=== PATIENT | female | born 1945 | race Caucasian/White ===

== ENCOUNTER 2018-02-01 09:32 | Outpatient (CLI) | payer MEDICARE, OTHER ==
[2018-02-01 10:09] LABS: BASOPHILS # (AUTO) 0.1 10^3/uL (0.0-0.1); EOSINOPHILS # (AUTO) 0.2 10^3/uL (0.0-0.7); EOSINOPHILS % (AUTO) 2.9 %; LYMPHOCYTES % (AUTO) 29.1 %; MEAN CORPUSCULAR HEMOGLOBIN 30.4 pg (27.0-31.0); MEAN CORPUSCULAR HGB CONC 33.4 g/dL (32.0-36.0); MEAN PLATELET VOLUME 7.6 fL (7.9-10.8); MONOCYTES # (AUTO) 0.5 10^3/uL (0.0-1.0); MONOCYTES % (AUTO) 7.6 %; NEUTROPHILS # (AUTO) 4.1 10^3/uL (1.5-6.6); NEUTROPHILS % (AUTO) 59.4 %; PLT - PLATELET COUNT 263 10^3/uL (130-450); RED BLOOD COUNT 4.93 10^6/uL (4.20-5.40); RED CELL DISTRIBUTION WIDTH 13.3 % (12.0-15.0); WHITE BLOOD COUNT 6.8 x10^3/uL (4.8-10.8)
[2018-02-01 10:46] LABS: ALBUMIN 4.2 g/dL (3.2-5.5); ALBUMIN/GLOBULIN RATIO 1.2 (1.0-2.2); ALKALINE PHOSPHATASE 73 IU/L (42-121); ALT ALANINE AMINOTRANSFERASE 19 IU/L (10-60); AST ASPARTATE AMINOTRANSFERASE 24 IU/L (10-42); BILIRUBIN,TOTAL 0.9 mg/dL (0.2-1.0); BUN - BLOOD UREA NITROGEN 21 mg/dL (6-20); CALCIUM 9.4 mg/dL (8.5-10.3); CARBON DIOXIDE - CO2 26 mmol/L (21-32); CHLORIDE 103 mmol/L (101-111); CHOL/HDL RATIO 3.9 (<4.4); CHOLESTEROL 168 mg/dL; CK- CREATINE KINASE 89 IU/L (22-269); CREATININE 0.7 mg/dL (0.4-1.0); GFR - MDRD 83 (>89); GLUCOSE 101 mg/dL (70-100); HDL CHOLESTEROL 43 mg/dL; LDL CHOLESTEROL,CALCULATED 92 mg/dL; LDL/HDL RATIO 2.1 (<4.4); SODIUM 137 mmol/L (135-145); TOTAL PROTEIN 7.7 g/dL (6.7-8.2); VLDL CHOLESTEROL 33 mg/dL
[2018-02-01 10:58] LABS: THYROID STIMULATING HORMONE 1.57 uIU/mL (0.34-5.60)
[2018-02-01 11:16] LABS: BILIRUBIN,URINE NEGATIVE (NEGATIVE); GLUCOSE, URINE (UA) NEGATIVE (NEGATIVE); KETONES,URINE (UA) NEGATIVE (NEGATIVE); LEUKOCYTE ESTERASE, URINE SMALL (NEGATIVE); NITRITE,URINE NEGATIVE (NEGATIVE); OCCULT BLOOD,URINE NEGATIVE (NEGATIVE); PROTEIN,URINE NEGATIVE (NEGATIVE); UROBILINOGEN,URINE 0.2 (NORMAL) E.U./dL (NORMAL)
[2018-02-01 11:51] LABS: CLARITY,URINE CLEAR (CLEAR)
[2018-02-01 12:10] LABS: BACTERIA,URINE Few /HPF (None Seen); RBC,URINE 0-5 /HPF (0-5); SQUAMOUS EPITHELIAL CELL,UR MOD Squamous (<= Few)
[2018-02-02 13:36] LABS: HEPATITIS C ANTIBODY NON-REACTIVE (NON-REACTIVE)
== END 2018-02-01 09:33 | disposition home or self-care (01) ==
LOC: LAB 09:32
PROVIDERS: ATTEND Internal Medicine
DX: Z12.11 Encounter for screening for malignant neoplasm of colon (principal); Z79.899 Other long term (current) drug therapy; Z12.12 Encounter for screening for malignant neoplasm of rectum; I10 Essential (primary) hypertension; R20.2 Paresthesia of skin; Z86.010 Personal history of colon polyps; E78.5 Hyperlipidemia, unspecified; C50.919 Malignant neoplasm of unspecified site of unspecified female breast; C44.91 Basal cell carcinoma of skin, unspecified; Z11.59 Encounter for screening for other viral diseases
CPT/HCPCS: 36415; 80053; 80061; 81001; 81003; 82550; 82607; 83721; 84443; 85025; 86803; 87086

== ENCOUNTER → 2018-02-15 | Outpatient (CLI) | payer MEDICARE, OTHER | LOC: LAB.R 08:00 | PROVIDERS: ATTEND Internal Medicine | DX: Z12.11 Encounter for screening for malignant neoplasm of colon (principal); Z12.12 Encounter for screening for malignant neoplasm of rectum; I10 Essential (primary) hypertension; R20.2 Paresthesia of skin; Z86.010 Personal history of colon polyps; E78.5 Hyperlipidemia, unspecified; C50.919 Malignant neoplasm of unspecified site of unspecified female breast; C44.91 Basal cell carcinoma of skin, unspecified; Z11.59 Encounter for screening for other viral diseases; Z79.899 Other long term (current) drug therapy | CPT/HCPCS: 82274 ==

== ENCOUNTER 2018-11-07 13:48 | Outpatient (CLI) | payer MEDICARE, OTHER ==
[2018-11-07 14:19] LABS: BASOPHILS # (AUTO) 0.1 10^3/uL (0.0-0.1); BASOPHILS % (AUTO) 0.7 %; EOSINOPHILS # (AUTO) 0.1 10^3/uL (0.0-0.7); EOSINOPHILS % (AUTO) 1.6 %; HGB - HEMOGLOBIN 15.1 g/dL (12.0-16.0); LYMPHOCYTES % (AUTO) 24.3 %; MEAN CORPUSCULAR HEMOGLOBIN 30.5 pg (27.0-31.0); MEAN CORPUSCULAR HGB CONC 34.3 g/dL (32.0-36.0); MEAN PLATELET VOLUME 7.4 fL (7.9-10.8); MONOCYTES # (AUTO) 0.6 10^3/uL (0.0-1.0); MONOCYTES % (AUTO) 7.2 %; NEUTROPHILS # (AUTO) 5.3 10^3/uL (1.5-6.6); NEUTROPHILS % (AUTO) 66.2 %; PLT - PLATELET COUNT 291 10^3/uL (130-450); RED BLOOD COUNT 4.93 10^6/uL (4.20-5.40); RED CELL DISTRIBUTION WIDTH 13.7 % (12.0-15.0)
[2018-11-07 14:36] LABS: CALCIUM 9.4 mg/dL (8.5-10.3); CREATININE 0.6 mg/dL (0.4-1.0)
== END 2018-11-07 13:49 | disposition home or self-care (01) ==
LOC: LAB 13:48
PROVIDERS: ATTEND Internal Medicine
DX: Z01.812 Encounter for preprocedural laboratory examination (principal); N81.10 Cystocele, unspecified; E78.5 Hyperlipidemia, unspecified; I10 Essential (primary) hypertension; C50.919 Malignant neoplasm of unspecified site of unspecified female breast; Z79.899 Other long term (current) drug therapy
CPT/HCPCS: 36415; 80048; 85025; 87640

== ENCOUNTER 2019-03-01 09:46 | Outpatient (CLI) | payer MEDICARE, OTHER ==
[2019-03-01 10:27] LABS: BILIRUBIN,URINE NEGATIVE (NEGATIVE); GLUCOSE, URINE (UA) NEGATIVE (NEGATIVE); KETONES,URINE (UA) NEGATIVE (NEGATIVE); LEUKOCYTE ESTERASE, URINE SMALL (NEGATIVE); NITRITE,URINE NEGATIVE (NEGATIVE); OCCULT BLOOD,URINE NEGATIVE (NEGATIVE); PH,URINE 5.5 PH (5.0-7.5); PROTEIN,URINE NEGATIVE (NEGATIVE); UROBILINOGEN,URINE 0.2 (NORMAL) E.U./dL (NORMAL)
[2019-03-01 10:28] LABS: CLARITY,URINE HAZY (CLEAR)
[2019-03-01 10:34] LABS: ALBUMIN 4.3 g/dL (3.2-5.5); ALBUMIN/GLOBULIN RATIO 1.2 (1.0-2.2); ALKALINE PHOSPHATASE 71 IU/L (42-121); ALT ALANINE AMINOTRANSFERASE 19 IU/L (10-60); AST ASPARTATE AMINOTRANSFERASE 21 IU/L (10-42); BACTERIA,URINE Few /HPF (None Seen); BILIRUBIN,TOTAL 0.9 mg/dL (0.2-1.0); BUN - BLOOD UREA NITROGEN 16 mg/dL (6-20); CALCIUM 9.4 mg/dL (8.5-10.3); CARBON DIOXIDE - CO2 27 mmol/L (21-32); CHLORIDE 100 mmol/L (101-111); CHOL/HDL RATIO 4.1 (<4.4); CHOLESTEROL 165 mg/dL; CK- CREATINE KINASE 68 IU/L (22-269); CREATININE 0.7 mg/dL (0.4-1.0); GFR - MDRD 82 (>89); GLUCOSE 112 mg/dL (70-100); HDL CHOLESTEROL 40 mg/dL; LDL CHOLESTEROL,CALCULATED 83 mg/dL; LDL/HDL RATIO 2.1 (<4.4); RBC,URINE None Seen /HPF (0-5); SODIUM 140 mmol/L (135-145); SQUAMOUS EPITHELIAL CELL,UR MOD Squamous (<= Few); VLDL CHOLESTEROL 42 mg/dL
[2019-03-01 10:47] LABS: HEMOGLOBIN A1C 0.61 g/dL; HEMOGLOBIN A1C % 5.9 % (4.6-6.2)
== END 2019-03-01 09:47 | disposition home or self-care (01) ==
LOC: LAB 09:46
PROVIDERS: ATTEND Internal Medicine
DX: I10 Essential (primary) hypertension (principal); Z79.899 Other long term (current) drug therapy; E78.5 Hyperlipidemia, unspecified; E87.6 Hypokalemia; C44.91 Basal cell carcinoma of skin, unspecified; R73.9 Hyperglycemia, unspecified
CPT/HCPCS: 36415; 80053; 80061; 81001; 81003; 82550; 83036; 83721; 84443; 87086

== ENCOUNTER 2019-10-17 11:10 | Outpatient (CLI) | payer MEDICARE, OTHER ==
--- NOTE | 2019-10-25 08:31 | Mammography Report ---
Reason: SCREENING MAMMO Procedure Date: 10/17/2019 Accession Number: [id number] / [id number] Procedure: CHARLES - Screening Mammo w/Donal CPT Code: Final Report FULL RESULT: EXAM: Screening Mammo w/Donal DATE: 10/17/2019 11:55 AM CLINICAL HISTORY: Screening encounter. Personal history of right breast cancer status post chemoradiation and lumpectomy in 2002. TECHNIQUE: (B) - Bilateral CC and MLO views were obtained. COMPARISON: 07/19/2018 through 07/16/2015. PARENCHYMAL PATTERN: (F) - The breast(s) demonstrate(s) diffuse fatty replacement. FINDINGS: Postsurgical and posttreatment changes in the right breast is stable, typically benign. There are no suspicious masses, calcifications, or areas of distortion. IMPRESSION: Benign findings. BI-RADS category 2. RECOMMENDATION: (ANNUAL) - Recommend routine annual screening mammography. BI-RADS CATEGORY: (2) - Benign Findings. STANDARD QUALIFYING STATEMENTS: 1. This examination was not reviewed with the aid of Computer-Aided Detection (CAD). 2. A negative or benign imaging report should not preclude biopsy if clinically suspicious findings are present. 3. Dense breasts may obscure an underlying neoplasm. 4. This examination was reviewed with the aid of 3D breast imaging (tomosynthesis).
== END 2019-10-17 11:11 | disposition home or self-care (01) ==
LOC: DI 11:10
DX: Z12.31 Encounter for screening mammogram for malignant neoplasm of breast (principal); Z85.3 Personal history of malignant neoplasm of breast; Z92.3 Personal history of irradiation; Z92.21 Personal history of antineoplastic chemotherapy
CPT/HCPCS: 77063; 77067

== ENCOUNTER 2020-12-30 12:21 | Outpatient (CLI) | payer MEDICARE, OTHER ==
--- NOTE | 2020-12-31 12:10 | Mammography Report ---
BILATERAL DIGITAL SCREENING MAMMOGRAM 3D/2D: 12/30/2020 CLINICAL: Routine screening. Personal history of right breast cancer. Comparison is made to exams dated: 10/17/2019 mammogram - [facility] and 07/19/2018 mammogram - [facility]. The tissue of both breasts is predominantly fatty. There are benign post operative findings in the right breast. No significant masses, calcifications, or other findings are seen in either breast. There has been no significant interval change. IMPRESSION: BENIGN There is no mammographic evidence of malignancy. A 1 year screening mammogram is recommended. This exam was interpreted at Station ID: [id number]. NOTE: For mammograms, a report in lay terms will be sent to the patient. Approximately 15% of breast malignancies will not be visualized mammographically. In the management of a palpable breast mass, a negative mammogram must not discourage biopsy of a clinically suspicious lesion. Electronically Signed By: Jose Holly M.D. slc/penrad:12/30/2020 13:50:44 ACR BI-RADS Category 2: Benign Finding(s) 3342F PARENCHYMAL PATTERN: (F) - The breast(s) demonstrate(s) diffuse fatty replacement. BI-RADS CATEGORY: (2) - 2 RECOMMENDATION: (ANNUAL) - Recommend routine annual screening mammography. [id number] 1 year screening LATERALITY: (B)
== END 2020-12-30 12:22 | disposition home or self-care (01) ==
LOC: DI.N 12:21
DX: Z12.31 Encounter for screening mammogram for malignant neoplasm of breast (principal); Z85.3 Personal history of malignant neoplasm of breast

== ENCOUNTER 2021-05-20 08:13 | Outpatient (CLI) | payer MEDICARE, OTHER ==
[2021-05-20 08:39] LABS: BASOPHILS # (AUTO) 0.1 10^3/uL (0.0-0.1); BASOPHILS % (AUTO) 0.8 %; EOSINOPHILS # (AUTO) 0.2 10^3/uL (0.0-0.7); EOSINOPHILS % (AUTO) 2.7 %; HCT - HEMATOCRIT 44.8 % (37.0-47.0); HGB - HEMOGLOBIN 15.3 g/dL (12.0-16.0); LYMPHOCYTES # (AUTO) 2.3 10^3/uL (1.5-3.5); MEAN CORPUSCULAR HEMOGLOBIN 30.5 pg (27.0-31.0); MEAN CORPUSCULAR HGB CONC 34.2 g/dL (32.0-36.0); MEAN CORPUSCULAR VOLUME 89.4 fL (81.0-99.0); MEAN PLATELET VOLUME 9.1 fL (7.9-10.8); MONOCYTES # (AUTO) 0.6 10^3/uL (0.0-1.0); MONOCYTES % (AUTO) 7.8 %; NEUTROPHILS % (AUTO) 56.6 %; PLT - PLATELET COUNT 266 10^3/uL (130-450); RED BLOOD COUNT 5.01 10^6/uL (4.20-5.40); RED CELL DISTRIBUTION WIDTH 13.2 % (12.0-15.0); WHITE BLOOD COUNT 7.1 x10^3/uL (4.8-10.8)
[2021-05-20 08:59] LABS: ALBUMIN 4.4 g/dL (3.2-5.5); ALBUMIN/GLOBULIN RATIO 1.3 (1.0-2.2); ALKALINE PHOSPHATASE 72 IU/L (42-121); ALT ALANINE AMINOTRANSFERASE 18 IU/L (10-60); AST ASPARTATE AMINOTRANSFERASE 21 IU/L (10-42); BILIRUBIN,TOTAL 0.9 mg/dL (0.2-1.0); BUN - BLOOD UREA NITROGEN 18 mg/dL (6-20); CALCIUM 9.2 mg/dL (8.5-10.3); CARBON DIOXIDE - CO2 25 mmol/L (21-32); CHLORIDE 101 mmol/L (101-111); CHOL/HDL RATIO 3.8 (<4.4); CHOLESTEROL 171 mg/dL; CK- CREATINE KINASE 77 IU/L (22-269); CREATININE 0.6 mg/dL (0.4-1.0); GFR - MDRD 98 (>89); GLUCOSE 110 mg/dL (70-100); HDL CHOLESTEROL 45 mg/dL; LDL CHOLESTEROL,CALCULATED 81 mg/dL; LDL/HDL RATIO 1.8 (<4.4); POTASSIUM 3.7 mmol/L (3.5-5.0); SODIUM 137 mmol/L (135-145); TOTAL PROTEIN 7.7 g/dL (6.7-8.2); TRIGLYCERIDES 225 mg/dL; VLDL CHOLESTEROL 45 mg/dL
[2021-05-20 09:07] LABS: ESTIMATED AVERAGE GLUCOSE 114 mg/dL (70-100); HEMOGLOBIN A1c% 5.6 % (4.27-6.07)
== END 2021-05-20 08:14 | disposition home or self-care (01) ==
LOC: LAB 08:13
PROVIDERS: ATTEND Internal Medicine
DX: Z79.899 Other long term (current) drug therapy (principal); Z13.6 Encounter for screening for cardiovascular disorders; I10 Essential (primary) hypertension; C44.91 Basal cell carcinoma of skin, unspecified; C50.919 Malignant neoplasm of unspecified site of unspecified female breast; E87.6 Hypokalemia; R73.01 Impaired fasting glucose; E78.5 Hyperlipidemia, unspecified
CPT/HCPCS: 36415; 80053; 80061; 82550; 83036; 83721; 84443; 85025

== ENCOUNTER 2021-06-24 14:30 | Outpatient (CLI) | payer MEDICARE, OTHER ==
--- NOTE | 2021-06-26 02:21 | XRAY Report ---
PROCEDURE: Knee 4 View LT INDICATIONS: LEFT KNEE PAIN TECHNIQUE: 4 views of the left knee(s) were acquired. Images became available for interpretation on 06/25/2021. COMPARISON: None. FINDINGS: Bones: No fractures or dislocations. No suspicious bony lesions. There is moderate to severe bilat eral medial compartment narrowing, right greater than left. Mild periarticular osteophytes without er osions. Moderate left patellofemoral compartment narrowing is present. Soft tissues: No joint effusion. No suspicious soft tissue calcifications. IMPRESSION: Arthritic changes as above slightly more prominent on the right. Reviewed by: Debi Wahl MD on 06/26/2021 12:48 AM PDT Approved by: Debi Wahl MD on 06/26/2021 12:48 AM PDT Station ID: [id number]
== END 2021-06-24 23:59 | disposition home or self-care (01) ==
LOC: DI.N 14:30
PROVIDERS: ATTEND Orthopaedic Surgery
DX: M17.0 Bilateral primary osteoarthritis of knee (principal)

== ENCOUNTER 2022-01-21 11:30 | Emergency (ER) | payer MEDICARE, OTHER ==
[2022-01-21 12:21] LABS: BASOPHILS % (AUTO) 0.3 %; EOSINOPHILS % (AUTO) 0.3 %; HCT - HEMATOCRIT 43.3 % (37.0-47.0); HGB - HEMOGLOBIN 15.3 g/dL (12.0-16.0); LYMPHOCYTES # (AUTO) 1.5 10^3/uL (1.5-3.5); LYMPHOCYTES % (AUTO) 16.1 %; MEAN CORPUSCULAR HGB CONC 35.3 g/dL (32.0-36.0); MEAN CORPUSCULAR VOLUME 87.7 fL (81.0-99.0); MEAN PLATELET VOLUME 9.3 fL (7.9-10.8); MONOCYTES # (AUTO) 0.4 10^3/uL (0.0-1.0); MONOCYTES % (AUTO) 4.6 %; NEUTROPHILS # (AUTO) 7.3 10^3/uL (1.5-6.6); NEUTROPHILS % (AUTO) 78.5 %; PLT - PLATELET COUNT 260 10^3/uL (130-450); RED BLOOD COUNT 4.94 10^6/uL (4.20-5.40); RED CELL DISTRIBUTION WIDTH 13.1 % (12.0-15.0); WHITE BLOOD COUNT 9.3 x10^3/uL (4.8-10.8)
--- NOTE | 2022-01-21 12:34 | XRAY Report ---
PROCEDURE: Chest 1 View X-Ray INDICATIONS: Chest pain TECHNIQUE: One view of the chest was acquired. COMPARISON: None. FINDINGS: Surgical changes and devices: Right axillary surgical clips. Lungs and pleura: There is a small round approximately 9 mm opacity in the lateral aspect of the righ t lung base adjacent to an EKG lead. Increased interstitial markings in both lungs. Mediastinum: Mediastinal contours appear normal. Heart size is normal. Bones and chest wall: No suspicious bony lesions. Overlying soft tissues appear unremarkable. IMPRESSION: Mildly increased interstitial prominence likely reflecting pulmonary edema or atypical infectious pro cess. Small rounded airspace opacity in the right lung base measuring 9 mm, potentially infectious although small lung nodule cannot be excluded. CT chest without IV contrast recommended when clinically appro priate. Reviewed by: Santiago Damon MD on 01/21/2022 12:33 PM PDT Approved by: Santiago Damon MD on 01/21/2022 12:33 PM PDT Station ID: [id number]
[2022-01-21 12:50] LABS: ALBUMIN 4.2 g/dL (3.2-5.5); ALBUMIN/GLOBULIN RATIO 1.1 (1.0-2.2); BILIRUBIN,TOTAL 2.8 mg/dL (0.2-1.0); CALCIUM 9.6 mg/dL (8.5-10.3); CREATININE 0.6 mg/dL (0.4-1.0); POTASSIUM 3.8 mmol/L (3.5-5.0)
--- NOTE | 2022-01-21 12:59 | ED Physician Documentation ---
PD HPI ABD PAIN - Stated complaint Stated Complaint: CHEST PAIN/SOA - Chief complaint Chief Complaint: Cardiac - History obtained from History obtained from: Patient - History of Present Illness Timing - onset: Yesterday Timing - duration: Days (2) Timing - details: Gradual onset, Waxing and waning Pain level max: 7 Pain level now: 5 Quality: Aching, Pain Location: Epigastric Radiation: No: Chest, , Lower back, Left flank, Left shoulder, Right flank, Right shoulder, Upper back Improved by: Other (nothing) Worsened by: Eating Associated symptoms: Nausea, Chest pain (epigastric pain). No: Fever, Vomiting, Hematemesis, Diarrhea, Constipation, Melena, Hematochezia, Dysuria, Hematuria, Dizzy, Near syncope / syncope, Loss of appetite, Weight loss Similar symptoms before: Has not had sx before Recently seen: Not recently seen Review of Systems Ten Systems: 10 systems reviewed and negative Constitutional: denies: Fever, Chills Ears: denies: Ear pain Nose: denies: Rhinorrhea / runny nose, Congestion Cardiac: denies: Chest pain / pressure Respiratory: denies: Dyspnea, Cough GI: reports: Abdominal Pain (dull, aching, epigastric), Nausea. denies: Hematemesis, Bloody / black stool Skin: denies: Rash Neurologic: denies: Headache PD PAST MEDICAL HISTORY - Past Medical History Past Medical History: Yes Cardiovascular: Hypertension, High cholesterol Respiratory: None Neuro: None Endocrine/Autoimmune: None GI: None RECONCILIATION SPECIALIST: Breast cancer : Other HEENT: None Psych: None Musculoskeletal: None Derm: None - Past Surgical History Past Surgical History: Yes /RECONCILIATION SPECIALIST: Hysterectomy, Mastectomy - Present Medications Home Medications: Ambulatory Orders Medication Instructions Recorded Confirmed Amlodipine Besylate [Norvasc] 10 mg PO DAILY 01/21/22 01/21/22 Ascorbic Acid [Vitamin C] 1,000 mg PO DAILY 01/21/22 01/21/22 Biotin 5 mg PO DAILY 01/21/22 01/21/22 Cholecalciferol (Vitamin D3) 125 mcg PO DAILY 01/21/22 01/21/22 [Vitamin D3] Lisinopril [Zestril] 10 mg PO DAILY 01/21/22 01/21/22 Oxycodone HCl/Acetaminophen 1 - 2 each PO Q6H PRN #14 tablet 01/21/22 [Percocet 5-325 mg Tablet] Potassium Chloride [Klor-Con M10] 10 meq PO DAILY 01/21/22 01/21/22 Promethazine [Phenergan] 25 mg PO Q6H PRN #10 tab 01/21/22 Simvastatin [Zocor] 40 mg PO DAILY PM 01/21/22 01/21/22 Tumeric/Ging/Earth/Oreg/Capryl 1 each PO DAILY 01/21/22 01/21/22 [Candicidal Capsule] Vitamin E 400 unit PO DAILY 01/21/22 01/21/22 Zinc Gluconate [Zinc] 50 mg PO DAILY 01/21/22 01/21/22 hydroCHLOROthiazide [Hydrodiuril] 12.5 mg PO DAILY 01/21/22 01/21/22 - Allergies Allergies/Adverse Reactions: Allergies Allergy/AdvReac Type Severity Reaction Status Date / Time No Known Drug Allergies Allergy Verified 01/21/22 11:44 - Social History Does the pt smoke?: No Smoking Status: Never smoker Does the pt drink ETOH?: No Does the pt have substance abuse?: No - Immunizations Immunizations are current?: Yes PD ED PE NORMAL - Vitals Vital signs reviewed: Yes - General General: Alert and oriented X 3, No acute distress - HEENT HEENT: PERRL, Moist mucous membranes - Neck Neck: Supple, no meningeal sign - Cardiac Cardiac: RRR, Strong equal pulses - Respiratory Respiratory: No respiratory distress, Clear bilaterally - Abdomen Abdomen: Soft, Non distended, Other (Tender to palpation epigastric without peritoneal signs. Mild right upper quadrant tenderness.) - Derm Derm: Warm and dry - Extremities Extremities: No edema - Neuro Neuro: Alert and oriented X 3 - Psych Psych: Normal mood, Normal affect Results - Vitals Vitals: Vital Signs - 24 hr 01/21/22 01/21/22 01/21/22 11:40 12:25 13:00 Temperature 36.4 C L Heart Rate 84 76 80 Respiratory 16 20 15 Rate Blood Pressure 137/69 H 117/66 133/68 H O2 Saturation 97 98 96 01/21/22 01/21/22 01/21/22 14:42 15:30 16:00 Temperature Heart Rate 95 100 95 Respiratory 19 18 18 Rate Blood Pressure 115/78 130/68 115/80 O2 Saturation 97 98 96 01/21/22 01/21/22 16:30 17:25 Temperature Heart Rate 96 94 Respiratory 18 18 Rate Blood Pressure 135/61 H 137/64 H O2 Saturation 95 95 Oxygen O2 Source Room air - EKG (time done) 1149 Rate: Rate (enter#) (83) Rhythm: NSR [place]: Normal Intervals: Normal CT QRS: Normal, LVH Ischemia: Non specific changes - Labs Labs: Laboratory Tests 01/21/22 01/21/22 01/21/22 12:10 12:10 12:10 WBC 9.3 RBC 4.94 Hgb 15.3 Hct 43.3 MCV 87.7 MCH 31.0 MCHC 35.3 RDW 13.1 Plt Count 260 MPV 9.3 Neut # (Auto) 7.3 H Lymph # (Auto) 1.5 Riley # (Auto) 0.4 Eos # (Auto) 0.0 Baso # (Auto) 0.0 Absolute Nucleated RBC 0.00 Nucleated RBC % 0.0 Sodium 136 Potassium 3.8 Chloride 100 L Carbon Dioxide 22 Anion Gap 14.0 H BUN 18 Creatinine 0.6 Estimated GFR (MDRD) 98 Glucose 153 H Calcium 9.6 Total Bilirubin 2.8 H AST 189 H ALT 187 H Alkaline Phosphatase 99 Troponin I High Sens 4.0 Total Protein 8.0 Albumin 4.2 Globulin 3.8 Albumin/Globulin Ratio 1.1 Lipase 847 H Urine Color Urine Clarity Urine pH Ur Specific [place] Urine Protein Urine Glucose (UA) Urine Ketones Urine Occult Blood Urine Nitrite Urine Bilirubin Urine Urobilinogen Ur Leukocyte Esterase Ur Microscopic Review Urine Culture Comments 01/21/22 15:25 WBC RBC Hgb Hct MCV MCH MCHC RDW Plt Count MPV Neut # (Auto) Lymph # (Auto) Riley # (Auto) Eos # (Auto) Baso # (Auto) Absolute Nucleated RBC Nucleated RBC % Sodium Potassium Chloride Carbon Dioxide Anion Gap BUN Creatinine Estimated GFR (MDRD) Glucose Calcium Total Bilirubin AST ALT Alkaline Phosphatase Troponin I High Sens Total Protein Albumin Globulin Albumin/Globulin Ratio Lipase Urine Color YELLOW Urine Clarity CLEAR Urine pH 6.0 Ur Specific [place] 1.020 Urine Protein NEGATIVE Urine Glucose (UA) NEGATIVE Urine Ketones TRACE Urine Occult Blood NEGATIVE Urine Nitrite NEGATIVE Urine Bilirubin NEGATIVE Urine Urobilinogen 0.2 (NORMAL) Ur Leukocyte Esterase NEGATIVE Ur Microscopic Review NOT INDICATED Urine Culture Comments NOT INDICATED - Rads (name of study) Right upper quadrant ultrasound Radiology: Final report received, EMP read contemporaneously, See rad report PD MEDICAL DECISION MAKING - ED course Complexity details: reviewed results, re-evaluated patient, considered differential, d/w patient, d/w family, d/w jewelry consultant ED course: 76-year-old female with what appears to be pancreatitis. She also has cholelithiasis without evidence of acute cholecystitis. Potentially could have choledocholithiasis. Pain well controlled in the emergency department. Tolerating p.o. without difficulty. No fevers. Discussed the case with Dr. Matos, general surgery who recommends pain control and can follow-up as an outpatient for elective cholecystectomy. He recommends that if she worsens, she go to a facility capable of performing an ERCP. Patient is well-appearing, nontoxic. Patient counseled regarding signs and symptoms for which I believe and urgent re-evaluation would be necessary. Patient with good understanding of and agreement to plan and is comfortable going home at this time This document was made in part using voice recognition software. While efforts are made to proofread this document, sound alike and grammatical errors may occur. IMPRESSION: 1. Cholelithiasis without ultrasound evidence of acute cholecystitis 2. Dilated CBD, 10.1 mm. Consider follow-up MRCP to evaluate for choledocholithiasis Departure - Departure Disposition: 01 Home, Self Care Clinical Impression: Biliary colic Pancreatitis Qualifiers: Chronicity: acute Pancreatitis type: unspecified pancreatitis type Acute pancreatitis complication: no infection or necrosis Qualified Code(s): K85.90 - Acute pancreatitis without necrosis or infection, unspecified Condition: Good Instructions: ED Gallstone W Biliary Colic, ED Pancreatitis Follow-Up: Mary Gandhi MD [Primary Care Provider] - Within 1 week Keith Matos MD [Provider Admit Priv/Credential] - Prescriptions: Oxycodone HCl/Acetaminophen [Percocet 5-325 mg Tablet] 1 - 2 each PO Q6H PRN #14 tablet PRN Reason: pain Promethazine [Phenergan] 25 mg PO Q6H PRN #10 tab PRN Reason: Nausea / Vomiting Comments: Please follow-up with your doctor for further care. You should have your liver function tests rechecked on Wednesday with your doctor. Please return if you have continued pain, vomiting, fevers or other new or worrisome symptoms. Please stop your lisinopril for the next 2 to 3 days until your symptoms resolve. I spoke with Dr. Matos, general surgery who would like you to follow-up in the office to discuss having your gallbladder removed when this episode is over. Your prescriptions were sent to [facility] in [place] I am prescribing a short course of narcotic pain medication for you. These are potentially dangerous and addictive medications that should be used carefully. These medications may constipate you. Take an [id number] stool softener (docusate) twice daily with plenty of water while taking these medications. If you go 24 hours without a bowel movement, take [id number] miralax, per package instructions. Do not drink or drive while taking these medications. If you received narcotic or sedating medications while in the emergency department, do not drive for 24 hours. Store this medication in a safe, secure place and out of reach of children. It is a violation of federal law to give or sell this medication to another person or to use in a manner other than prescribed. The ED will not refill narcotic prescriptions, including prescriptions lost or stolen. To dispose of unwanted medications: 1. [facility] [address] [facility] in [place] has a medication drop box. They accept prescription medications (in pill form) Wednesday through Wednesday 9:00 a.m. to 5:00 p.m. 2. [facility] [employer] accepts prescription medications (in pill form only) for disposal year round. Call for more information. 3. Contact the [facility] for the next [facility] sponsored prescription drug collection event. , [phone], or [phone]; Discharge Date/Time: 01/21/22 17:36
[2022-01-21] MEDS: SODIUM CHLORIDE 0.9% 1,000 ML IV STA (14:42)
[2022-01-21] MEDS: PROMETHAZINE INJ 25 MG in SODIUM CHLORIDE 0.9% 50 ML IV STA (15:15)
[2022-01-21] MEDS: oxyCODONE 5 MG TABLET PO STA (15:29)
[2022-01-21 15:36] LABS: BILIRUBIN,URINE NEGATIVE (NEGATIVE); GLUCOSE, URINE (UA) NEGATIVE (NEGATIVE); KETONES,URINE (UA) TRACE mg/dL (NEGATIVE); LEUKOCYTE ESTERASE, URINE NEGATIVE (NEGATIVE); NITRITE,URINE NEGATIVE (NEGATIVE); OCCULT BLOOD,URINE NEGATIVE (NEGATIVE); PROTEIN,URINE NEGATIVE (NEGATIVE); UROBILINOGEN,URINE 0.2 (NORMAL) E.U./dL (NORMAL)
[2022-01-21 15:39] LABS: CLARITY,URINE CLEAR (CLEAR)
--- NOTE | 2022-01-21 16:09 | Ultrasound Report ---
PROCEDURE: Abdomen Limited INDICATIONS: RUQ pain, pancreatitis, elevated LFTs TECHNIQUE: Real-time focused scanning was performed of the abdomen, with image documentation. COMPARISON: None FINDINGS: Liver: Normal is size and echotexture. No evidence of focal mass lesion. No intra hepatic biliary ductal dilatation. Gallbladder: Several shadowing calculi noted in the lumen of the gallbladder. No gallbladder wall th ickening or pericholecystic fluid. Common Bile Duct: 10.1 mm. Pancreas: Unremarkable as visualized. Right Kidney: Appropriate in size and echotexture. No evidence of hydronephrosis. No shadowing calc reji. No solid or cystic mass lesion. 2 cm right renal simple cyst. IMPRESSION: 1. Cholelithiasis without ultrasound evidence of acute cholecystitis 2. Dilated CBD, 10.1 mm. Consider follow-up MRCP to evaluate for choledocholithiasis Reviewed by: Hayder Wagoner MD on 01/21/2022 3:08 PM DEA Approved by: Hayder Wagoner MD on 01/21/2022 3:08 PM AKPIETRO Station ID: [id number]
[2022-01-21 17:25] VITALS: BP 137/64
== END 2022-01-21 17:36 | disposition home or self-care (01) ==
LOC: ED 11:30
DX: K85.90 Acute pancreatitis without necrosis or infection, unspecified (principal); K80.50 Calculus of bile duct without cholangitis or cholecystitis without obstruction; I10 Essential (primary) hypertension
CPT/HCPCS: 36415; 71045; 76705; 80053; 81003; 83690; 84484; 85025; 93005; 96365; 99284; A9270; J7040; 81001; 87086

== ENCOUNTER 2022-02-05 08:40 | Outpatient (CLI) | payer MEDICARE, OTHER ==
[2022-02-05 09:14] LABS: ALBUMIN 4.1 g/dL (3.2-5.5); BILIRUBIN,DIRECT 0.2 mg/dL (0.1-0.5); BILIRUBIN,TOTAL 0.8 mg/dL (0.2-1.0); TOTAL PROTEIN 7.8 g/dL (6.7-8.2)
== END 2022-02-05 08:41 | disposition home or self-care (01) ==
LOC: LAB 08:40
PROVIDERS: ATTEND Internal Medicine
DX: K85.90 Acute pancreatitis without necrosis or infection, unspecified (principal)
CPT/HCPCS: 36415; 80076

== ENCOUNTER 2024-01-21 11:03 | Outpatient (CLI) | payer MEDICARE, OTHER ==
--- NOTE | 2024-01-21 12:11 | XRAY Report ---
PROCEDURE: Knee 3V RT INDICATIONS: RIGHT KNEE PAIN TECHNIQUE: 3 views of the knee(s) were acquired. COMPARISON: None. FINDINGS: Bones: No fractures or dislocations. No suspicious bony lesions. Tricompartmental joint space quan rowing with associated osteophytosis. Soft tissues: No knee joint effusion. No suspicious soft tissue calcifications or masses. IMPRESSION: No acute bony abnormality. Mild to moderate tricompartmental osteoarthritis. Kellgren-Devyn scale of osteoarthritis: 2. Reviewed by: Souleymane Bundy MD on 01/21/2024 12:09 PM PDT Approved by: Souleymane Bundy MD on 01/21/2024 12:09 PM PDT Station ID: [id number]
== END 2024-01-21 11:04 | disposition home or self-care (01) ==
LOC: DI 11:03
PROVIDERS: ATTEND Internal Medicine
DX: M17.11 Unilateral primary osteoarthritis, right knee (principal)

== ENCOUNTER 2024-02-02 10:24 | Outpatient (CLI) | payer MEDICARE, OTHER ==
--- NOTE | 2024-02-02 22:05 | MRI Report ---
Knee RT WO CLINICAL INFORMATION: 78 years of age, Female, RT KNEE PAIN. COMPARISON: None Technique: Multisequence, multiplanar MRI of the right knee was performed without intravenous contras t. FINDINGS: Menisci: In the medial meniscus, there is an oblique tear at the posterior horn and root junction (se radha 5, image 14). There is moderate extrusion of the medial meniscus body with a small flap tear of the medial meniscus body, extending inferiorly to the inferior gutter. The lateral meniscus is unrema rkable. Cruciate ligaments: Fluid tracking along the undersurface of the ACL, concerning for partial tear. Th e PCL is unremarkable. MCL/LCL: The MCL is unremarkable. The biceps femoris tendon is unremarkable. The fibular collateral ligament is unremarkable. The iliotibial band is intact. The popliteus muscle and tendon also appear intact. Extensor mechanism: The quadricep tendon is unremarkable. The patella tendon is unremarkable. Hoffa's fat pad edema. Patellofemoral joint: Alignment within the patellofemoral joint is normal. The patellofemoral ligame nts are intact. Multifocal high-grade chondral irregularity in the patella, with mild subchondral mar row edema in the median ridge and the lateral patellar facet. Osteophytosis of the medial trochlea wi th overlying full-thickness chondral loss. Cartilage and bone: In the medial compartment, there is complete chondral denudation in the weightbea ring portion of the femoral condyle, and the tibial plateau. In the lateral compartment, there is hig h-grade chondral irregularity of the nonweightbearing portion of the femoral condyle, and mild chondr al irregularity of the weightbearing portion of the femoral condyle. There is marrow edema of the tib ial eminence, at the insertion of the ACL, favoring reactive. Miscellaneous: Small knee effusion. Trace popliteal cyst. No intra-articular bodies are identified. N ormal muscle signal intensity and morphology. No vascular anomaly. IMPRESSION: 1.Tear of the medial meniscus as described above. 2.Partial tear of the ACL. 3.Severe, medial compartment predominant chondrosis. Reviewed by: Isabella Murillo MD on 02/02/2024 10:03 PM PDT Approved by: Isabella Murillo MD on 02/02/2024 10:03 PM PDT Station ID: [id number]
== END 2024-02-02 10:25 | disposition home or self-care (01) ==
LOC: DI 10:24
PROVIDERS: ATTEND Internal Medicine
DX: S83.241A Other tear of medial meniscus, current injury, right knee, initial encounter (principal); S83.511A Sprain of anterior cruciate ligament of right knee, initial encounter; M23.91 Unspecified internal derangement of right knee

== ENCOUNTER 2024-02-02 10:24 | Outpatient (CLI) | payer MEDICARE, OTHER ==
--- NOTE | 2024-02-03 09:38 | Mammography Report ---
BILATERAL DIGITAL SCREENING MAMMOGRAM 3D/2D: 02/02/2024 CLINICAL: Routine screening. Personal history of right breast cancer. Comparison is made to exams dated: 08/06/2022 mammogram, 12/30/2020 mammogram, 10/17/2019 mammogram - [facility], and 07/19/2018 mammogram - [facility]. Both breasts are almost entirely fatty (category a/<25% glandular tissue). There are benign calcifications in the right breast. There also are benign post operative findings i n the right breast. No significant masses, calcifications, or other findings are seen in either breast. There has been no significant interval change. IMPRESSION: BENIGN There is no mammographic evidence of malignancy. A 1 year screening mammogram is recommended. This exam was interpreted at Station ID: [id number]. NOTE: For mammograms, a report in lay terms will be sent to the patient. Approximately 15% of breast malignancies will not be visualized mammographically. In the management of a palpable breast mass, a negative mammogram must not discourage biopsy of a clinically suspicious lesion. Electronically Signed By: Nando godinez/juliette:02/02/2024 12:28:13 letter sent: No_Letter ACR BI-RADS Category 2: Benign Finding(s) 3342F PARENCHYMAL PATTERN: (F) - The breast(s) demonstrate(s) diffuse fatty replacement. BI-RADS CATEGORY: (2) - 2 RECOMMENDATION: (ANNUAL) - Recommend routine annual screening mammography. [id number] 1 year screening LATERALITY: (B)
== END 2024-02-02 10:25 | disposition home or self-care (01) ==
LOC: DI 10:24
PROVIDERS: ATTEND Internal Medicine
DX: Z12.31 Encounter for screening mammogram for malignant neoplasm of breast (principal); Z85.3 Personal history of malignant neoplasm of breast

== ENCOUNTER 2024-02-04 07:54 | Outpatient (CLI) | payer MEDICARE, OTHER ==
[2024-02-04 13:35] LABS: BASOPHILS # (AUTO) 0.1 10^3/uL (0.0-0.1); BASOPHILS % (AUTO) 0.9 %; EOSINOPHILS # (AUTO) 0.2 10^3/uL (0.0-0.7); EOSINOPHILS % (AUTO) 3.5 %; HGB - HEMOGLOBIN 14.2 g/dL (12.0-16.0); LYMPHOCYTES # (AUTO) 2.3 10^3/uL (1.5-3.5); LYMPHOCYTES % (AUTO) 33.7 %; MEAN CORPUSCULAR HEMOGLOBIN 30.3 pg (27.0-31.0); MEAN CORPUSCULAR VOLUME 91.7 fL (81.0-99.0); MONOCYTES # (AUTO) 0.6 10^3/uL (0.0-1.0); MONOCYTES % (AUTO) 8.7 %; NEUTROPHILS # (AUTO) 3.6 10^3/uL (1.5-6.6); NEUTROPHILS % (AUTO) 53.1 %; PLT - PLATELET COUNT 283 10^3/uL (130-450); RED BLOOD COUNT 4.69 10^6/uL (4.20-5.40); RED CELL DISTRIBUTION WIDTH 13.1 % (12.0-15.0); WHITE BLOOD COUNT 6.9 x10^3/uL (4.8-10.8)
[2024-02-04 13:59] LABS: ALBUMIN 4.4 g/dL (3.2-5.5); ALBUMIN/GLOBULIN RATIO 1.4 (1.0-2.2); ALKALINE PHOSPHATASE 64 IU/L (42-121); ALT ALANINE AMINOTRANSFERASE 22 IU/L (10-60); AST ASPARTATE AMINOTRANSFERASE 25 IU/L (10-42); BILIRUBIN,TOTAL 0.7 mg/dL (0.2-1.0); BUN - BLOOD UREA NITROGEN 19 mg/dL (6-20); CALCIUM 9.5 mg/dL (8.5-10.3); CARBON DIOXIDE - CO2 25 mmol/L (21-32); CHLORIDE 102 mmol/L (101-111); CHOL/HDL RATIO 3.7 (<4.4); CHOLESTEROL 162 mg/dL; CREATININE 0.6 mg/dL (0.6-1.3); GFR - MDRD 97 (>89); GLUCOSE 120 mg/dL (74-104); HDL CHOLESTEROL 44 mg/dL; LDL CHOLESTEROL,CALCULATED 74 mg/dL; LDL/HDL RATIO 1.7 (<4.4); POTASSIUM 3.7 mmol/L (3.5-4.5); SODIUM 135 mmol/L (135-145); TOTAL PROTEIN 7.6 g/dL (6.4-8.9); TRIGLYCERIDES 222 mg/dL (48-352); VLDL CHOLESTEROL 44 mg/dL
[2024-02-04 14:09] LABS: THYROID STIMULATING HORMONE 2.84 uIU/mL (0.34-5.60)
[2024-02-04 21:02] LABS: ESTIMATED AVERAGE GLUCOSE 111 mg/dL (70-100); HEMOGLOBIN A1c% 5.5 % (4.27-6.07)
== END 2024-02-04 07:55 | disposition home or self-care (01) ==
LOC: LAB.N 07:54
PROVIDERS: ATTEND Internal Medicine
DX: Z00.00 Encounter for general adult medical examination without abnormal findings (principal); C50.919 Malignant neoplasm of unspecified site of unspecified female breast; K85.10 Biliary acute pancreatitis without necrosis or infection; Z86.010 Personal history of colon polyps; E78.5 Hyperlipidemia, unspecified; I10 Essential (primary) hypertension; R73.01 Impaired fasting glucose; M25.561 Pain in right knee; Z79.899 Other long term (current) drug therapy
CPT/HCPCS: 36415; 80053; 80061; 83036; 83721; 84443; 85025

== ENCOUNTER 2024-03-06 09:33 | Outpatient (CLI) | payer MEDICARE, OTHER ==
--- NOTE | 2024-03-06 22:00 | XRAY Report ---
PROCEDURE: Knee 4+V RT INDICATIONS: BILATERAL PRIMARY OSTEOARTHRITIS OF KNEE TECHNIQUE: 4 views of the knee(s) were acquired. COMPARISON: X-ray knee 01/21/2024, MRI knee 02/02/2024 FINDINGS: Bones: No fractures or dislocations. No suspicious bony lesions. Left knee demonstrates moderate bicompartmental arthritic change. The right knee demonstrates moderate to severe tricompartmental art hritic change most severe medially. Scattered paratracheal or osteophytes. No erosions. Overall appea dong is stable compared to prior exam. Soft tissues: Minimal knee joint effusion. No suspicious soft tissue calcifications or masses. IMPRESSION: Moderate to severe tricompartmental right arthritic change most severe medially, stable. Reviewed by: Debi Wahl MD on 03/06/2024 9:58 PM PDT Approved by: Debi Wahl MD on 03/06/2024 9:58 PM PDT Station ID: [id number]
== END 2024-03-06 09:34 | disposition home or self-care (01) ==
LOC: DI 09:33
PROVIDERS: ATTEND Physician Assistant Surgical
DX: M17.0 Bilateral primary osteoarthritis of knee (principal)